=== PATIENT | female | born 1950 | race Caucasian/White ===

== ENCOUNTER → 2016-09-21 | Outpatient (CLI) | payer OTHER ==
[~2016-09-21] MED LIST: ACETAMINOPHEN PO; ALBUTEROL17 GM INH; ALLEGRA; ALLOPURINOL300 MG PO; AMLODIPINE BESY10 MG PO; ASPIRIN EC81 M1 PO; ATORVASTATIN CA20 MG PO; AVANDAMET; AVANDAMET 2 MG/1 TAB PO; AVANDAMET PO; AVANDIA; B/P MEDS; BENICAR HCT 40-1 TAB PO; BENTYL20 MG PO; CARVEDILOL6.25 MG PO; CETIRIZINE HCL10 MG PO; CIPRO PO; CITALOPRAM HBR40 MG PO; CLIDINIUM-CDP C1 CAP PO; CRESTOR PO; DELTASONE20 MG PO; DESYREL50 MG PO; DICYCLOMINE HCL20 MG; DIOVAN HCT 160-1 TAB; FLAGYL PO; GABAPENTIN300 M2 PO; HUMIBID-LA600 MG PO; LEVAQUIN PO; LEVAQUIN750 MG PO; LEXAPRO PO; LIBRAX CAPSULE1 CAP PO; LOSARTAN-HCTZ1 EAC3 PO; METFORMIN; METFORMIN PO; NEXIUM; NORCO1 TAB 10/3 PO; PREDNISONE10 MG PO; PRILOSEC20 MG PO; PROTONIX PO; SIMVASTATIN10 MG PO; SINGULAIR PO; SULAR PO; TRAMADOL HCL50 M2 PO; ZYLOPRIM PO; [UNRECOGNIZED DRUG - OTHER]
--- NOTE | ~2016-09-21 | MY11 ---
[facility] A Service of [facility] / [facility] RADIOLOGY TEXT RESULTS PATIENT: JOVANI NORMAN LOCATION: [facility] : 54 UNIT #: [id number] AGE: [address]: MAYRA VALLEJO APRN SEX: F ORDER DR: [id number] [facility] [address] [place], [place] [address] [id number] O MR#: [id number] Acc #: [id number] NAME: JOVANI NORMAN : 1950 SEX: F STUDY DATE/TIME: 09/21/2016 9:53 UNIT: [facility] ROOM: STUDY DESCRIPTION: MY Mammogram Screening Dig [facility] Attending Physician: Mayra Vallejo Ordering Physician: Physician Non-Staff Primary Care Physician: Mayra Vallejo MEDICAL IMAGING REPORT This report is preliminary unless electronic signature is present EXAM Digital screening mammogram 09/21/2016. HISTORY A 66-year-old woman no risk elevation. Annual screening. COMPARISON STUDIES Mammograms 04/08/2013, 06/18/2014, 08/03/2015 FINDINGS Digital imaging of each breast was completed utilizing a two-view examination of each breast in craniocaudal and mediolateral-oblique projections. Review and interpretation of digital mammograms include a second review in conjunction with FDA-approved CAD device. There is a normal parenchymal presentation bilaterally consistent with the patient's age. There are no breast masses imaged and no parenchymal asymmetry is visualized. There are no suspicious microcalcifications and I see no focal architectural disturbance. IMPRESSION Negative screening digital mammogram. One-year followup recommended. Patients over the age of 40 are entered into a reminder system with target due date for the next mammogram. A result letter will also be sent to the patient. BIRADS: 1 Negative Dictated by... Ricardo Fox M.D. [facility] A Service of [facility] & [facility] RADIOLOGY TEXT RESULTS PATIENT: JOVANI NORMAN LOCATION: [facility] : 54 UNIT #: [id number] AGE: [address]: MAYRA VALLEJO APRN SEX: F ORDER DR: THIS IS AN ELECTRONICALLY VERIFIED REPORT Ricardo Fox M.D. at 09/21/2016 12:13 PM Conrad TD: 09/21/2016 11:40 JOB #: [id number] MEDICAL IMAGING REPORT Page 1 of 1 COPY
== END | disposition home or self-care (01) ==
LOC: CWCC 09:33
DX: Z12.31 Encounter for screening mammogram for malignant neoplasm of breast (principal)
CPT/HCPCS: G0202